=== PATIENT | male | born 1945 | race Caucasian/White ===

== ENCOUNTER 2017-06-11 13:38 | Emergency (ER) | payer MEDICARE, OTHER ==
[~2017-06-11] VITALS: Ht 162.6 cm; Wt 105.7 kg
[2017-06-11] MEDS ORDERED: ZOFRAN ODT4 MG PO (14:02)
[2017-06-11] MEDS ORDERED: HYCET 7.5 MG-3473 ML PO (14:06)
[2017-06-11] MEDS ORDERED: AMLODIPINE BESYL5 MG PO (14:07)
[2017-06-11] MEDS ORDERED: BAYER CHEWABLE81 MG PO (14:07)
[2017-06-11] MEDS ORDERED: PLAVIX75 MG PO (14:08)
[2017-06-11] MEDS ORDERED: BREO ELLIPTA 21 EACH INH (14:08)
[2017-06-11] MEDS ORDERED: PROSCAR5 MG PO (14:09)
[2017-06-11] MEDS ORDERED: PROAIR RESPICL90 MCG INH (14:10)
[2017-06-11] MEDS ORDERED: FLOMAX0.4 MG PO (14:11)
[2017-06-11] MEDS ORDERED: LASIX20 MG PO (14:12)
[2017-06-11] MEDS ORDERED: LANTUS100 UNITS/ SUB-Q (14:12)
[2017-06-11] MEDS ORDERED: LOSARTAN POTAS100 MG PO (14:30)
[2017-06-11] MEDS ORDERED: K-TAB ER20 MEQ PO (14:30)
[2017-06-11] MEDS ORDERED: MECLIZINE HCL25 MG PO (15:12)
== END 2017-06-11 15:34 | disposition home or self-care (01) ==
LOC: ED 13:38
DX: H81.10 Benign paroxysmal vertigo, unspecified ear (principal); I25.2 Old myocardial infarction; I10 Essential (primary) hypertension; E11.9 Type 2 diabetes mellitus without complications; Z95.5 Presence of coronary angioplasty implant and graft; Z88.1 Allergy status to other antibiotic agents; Z88.8 Allergy status to other drugs, medicaments and biological substances; Z79.899 Other long term (current) drug therapy; Z79.82 Long term (current) use of aspirin; Z79.4 Long term (current) use of insulin
CPT/HCPCS: 80053; 81001; 85025; 99283; J7030

== ENCOUNTER 2017-06-18 12:36 | Emergency (ER) | payer MEDICARE, OTHER ==
[~2017-06-18] VITALS: Ht 162.6 cm; Wt 105.7 kg
[~2017-06-18 12:36] MED LIST: AMLODIPINE BESYL5 MG PO; BAYER CHEWABLE81 MG PO; BREO ELLIPTA 21 EACH INH; FLOMAX0.4 MG PO; HYCET 7.5 MG-3473 ML PO; K-TAB ER20 MEQ PO; LANTUS100 UNITS/ SUB-Q; LASIX20 MG PO; LOSARTAN POTAS100 MG PO; MECLIZINE HCL25 MG PO; PLAVIX75 MG PO; PROAIR RESPICL90 MCG INH; PROSCAR5 MG PO; ZOFRAN ODT4 MG PO
[2017-06-18] MEDS ORDERED: METHYLPREDNISOLO4 M1 PO (16:14)
[2017-06-18] MEDS ORDERED: MECLIZINE HCL25 M1 PO (16:14)
[2017-06-18] MEDS ORDERED: MACRODANTIN100 MG PO (16:16)
--- NOTE | 2017-06-18 19:18 | EKG ---
[facility] [address] [facility] [place] [address] Signed Sinus bradycardia with 1st degree AV block Right bundle branch block Inferior infarct , age undetermined Abnormal ECG When compared with ECG of 29-MAY-2017 10:16, Vent. rate has decreased BY 30 BPM Confirmed by BRIGID BEE MD ([id number]) on 06/18/2017 7:17:59 PM Electronically Signed By: BRIGID BEE MD 06/18/17 1918 PATIENT NAME: DELGADO PELLETIER RAMA BUCIO Electrocardiogram DATE OF : 43 PHYSICIAN: BRIGID BEE MD REPORT #: [id number] REPORT IS CONFIDENTIAL AND NOT TO BE RELEASED WITHOUT AUTHORIZATION
== END 2017-06-18 16:25 | disposition home or self-care (01) ==
LOC: ED 12:36
DX: K43.2 Incisional hernia without obstruction or gangrene (principal); H83.09 Labyrinthitis, unspecified ear; N39.0 Urinary tract infection, site not specified; I25.2 Old myocardial infarction; I10 Essential (primary) hypertension; E11.9 Type 2 diabetes mellitus without complications; Z95.5 Presence of coronary angioplasty implant and graft; Z90.49 Acquired absence of other specified parts of digestive tract; Z88.8 Allergy status to other drugs, medicaments and biological substances; Z79.899 Other long term (current) drug therapy; Z79.4 Long term (current) use of insulin
CPT/HCPCS: 70450; 74177; 80053; 81001; 84484; 85025; 93005; 93010; 96361; 96374; 99284; J2405; J7030; Q9967

== ENCOUNTER 2020-09-27 06:00 | Day surgery (SDC) | payer MEDICARE, OTHER ==
[~2020-09-27] VITALS: Ht 162.6 cm; Wt 102.3 kg
[~2020-09-27 06:00] MED LIST changes: +COZAAR25 MG PO; +HUMALOG100 UNIT/2 SUB-Q; -LOSARTAN POTAS100 MG PO; +MACRODANTIN100 MG PO; +MECLIZINE HCL25 M1 PO; +METHYLPREDNISOLO4 M1 PO; +PEPCID40 MG PO
--- NOTE | 2020-09-27 09:42 | NUR ---
09/27/20 0942 Jerri Wasserman 0900 PT ARRIVED IN PACU SLEEPY WITH OPA IN PLACE. 09 PT REACTIVE. OPA REMOVED. ABD SOFT AND PASSING FLATUS. 0910 REPOSITIONED TO BACK AND SITTING UP IN BED. 0915 DR AT BEDSIDE. 09 GETTING DRESSED WITH STAND BY ASSIST. DC INSTRUCTIONS GIVEN. 0930 LEFT VIA W/C. INSTRUCTIONS GIVEN TO AT CAR. ALL QUESTIONS ANSWERED.
--- NOTE | 2020-09-28 06:33 | OR ---
[facility] [address] [place], [place] [address] Signed DATE OF OPERATION: 09/27/2020 SURGEON: Tamara Anderson MD PREOPERATIVE DIAGNOSES: 1. Mild epigastric abdominal pain. 2. Gastric sleeve in 2017. 3. Gastroesophageal reflux disease. 4. Chews snuff. 5. Increased diarrhea. 6. Sigmoid resection at age 44 for diverticular disease. 7. Choi colorectal anastomosis. 8. Diverticulosis. 9. Internal and external hemorrhoids. POSTOPERATIVE DIAGNOSES: 1. Mild gastritis. 2. Small hiatal hernia (42-39 cm). 3. Choi colorectal anastomosis at 22-24 cm. 4. Minimal to moderate diverticulosis from proximal transverse colon through left colon. 5. Minimal to moderate internal and external hemorrhoids. 6. 10 mm polyp at 26 cm (snare). 7. 5 mm polyp at 42 cm. 8. 4 mm polyp at 52 cm. 9. 4 mm polyp at hepatic flexure. 10. 4 mm polyp at proximal transverse colon. 11. 4 mm polyp at 50 cm. PROCEDURES: 1. EGD with CLOtest and biopsies of the duodenum, antrum, GE junction, midesophagus. 2. Colonoscopy with snare polypectomy and hot biopsy. ESTIMATED BLOOD LOSS: None. INDICATIONS: Delgado is a 75-year-old significantly disabled, obese, diabetic gentleman. He was asked to see me for upper and lower endoscopy. He presents with the above findings. He had his last colonoscopy in [address] Toi Willams in [place], [place]. He did have some diverticular disease at that time along with internal and external hemorrhoids. He Electronically Signed By: TAMARA ANDERSON MD 09/28/20 0633 PATIENT NAME: DELGADO PELLETIER JR OPERATIVE REPORT DATE OF : 43 REPORT #: [id number] PHYSICIAN: TAMARA ANDERSON MD PCP: RUBÉN GUNDERSON MD REPORT IS CONFIDENTIAL AND NOT TO BE RELEASED WITHOUT AUTHORIZATION [facility] [address] [place], [place] [address] Signed has no family history of colon cancer or polyps. He has been having some increased diarrhea, but generally works out well with his Metamucil. That represents a change in bowel habits for him. He has no prior history of colon polyps or cancer and no family history of colon cancer or polyps. In the office, I gave him upper and lower endoscopy brochures. He understands the nature of the two tests. There is risk including, but not limited to gas bloating, crampy abdominal pain, bleeding, perforation requiring surgery, and missed diagnosis. Also because of his significant medical history including his heart and the fact that he remains obese with a very full face and neck, we asked that an anesthesia provider help us with increased monitoring sedation with propofol, that proved to be a khan decision as he did need some airway control. He had expressed understanding and wished to proceed. DESCRIPTION OF PROCEDURE: Delgado was taken into our endoscopy suite and placed in a supine semi-recumbent position. A bite block was utilized for the upper endoscopy. He was given IV sedation per nurse sales representative wire rope. The adult gastroscope was introduced and advanced under direct visualization out into the third portion of the duodenum without difficulty. We took a biopsy of the duodenum because of the history of diarrhea. The pyloric bulb was unremarkable. The stomach showed routine gastric sleeve anatomy. We went and took biopsy out of the antrum for pathologic review along with the CLOtest. He had just a little erythema in the antrum. Upon retroflexion of scope, we could see the cardia. He does have a small hiatal hernia. The scope was withdrawn up through the area of the GE junction, which was compliant without stricture. We saw no gastric or esophageal varices. The Z-line is relatively intact, but he did have little irritation around that area, so we took a biopsy along the edge of the Z-line. No Del Angel's mucosa and no distal esophagitis. He had some rings in the mid esophagus, so we took biopsies of the midesophagus as well. Otherwise, no inflammatory changes in the mid or upper esophagus. After this, the gas had been suctioned out and the gastroscope removed. Delgado tolerated his upper endoscopy quite well. Delgado was rotated into the left lateral decubitus position. He was maintained on IV sedation with propofol per our nurse sales representative wire rope. A digital rectal exam was performed. He does have minimal external hemorrhoids. He had good sphincter tone. Prostate is [id number] indurated and enlarged. No nodules. The adult colonoscope was introduced and we passed all the way up into the cecum without difficulty. His prep was good. We could easily see the appendiceal orifice and the ileocecal valve. The scope was then slowly withdrawn. We took pictures throughout for photodocumentation. The above-mentioned polyps were removed with the help of hot biopsy forceps. Just above his colorectal anastomosis was a moderate-sized polyp, which we removed with a combination of the snare and hot biopsy forceps. We think we removed all of it. Although, it is a bit difficult because it was just above the anastomosis and with him breathing there was quite a bit of motion. We eventually added glucagon and that did help. We can see the Electronically Signed By: TAMARA ANDERSON MD 09/28/20 0633 PATIENT NAME: DELGADO PELLETIER JR OPERATIVE REPORT DATE OF : 43 REPORT #: [id number] PHYSICIAN: TAMARA ANDERSON MD PCP: RUBÉN GUNDERSON MD REPORT IS CONFIDENTIAL AND NOT TO BE RELEASED WITHOUT AUTHORIZATION [facility] [address] [place] [id number] Signed anastomosis well healed 22-24 cm. The rectum itself was unremarkable. Upon retroflexion of scope, he does have moderate internal hemorrhoids. After this, the gas was suctioned out and colonoscope removed. Delgado tolerated the procedure quite well. RECOMMENDATIONS: I will see Delgado back in my office in 7 to 14 days to review his results. He could consider a shorter interval followup colonoscopy, particularly to evaluate the area just above the anastomosis. MD DILLON Mackey/JESUSL /[id number] cc: MD Rubén Mackey MD Copies: TAMARA ANDERSON MD, MALCOLM MD ~ Electronically Signed By: TAMARA ANDERSON MD 09/28/20 0633 PATIENT NAME: DELGADO PELLETIER JR OPERATIVE REPORT DATE OF : 43 REPORT #: [id number] PHYSICIAN: TAMARA ANDERSON MD PCP: RUBÉN GUNDERSON MD REPORT IS CONFIDENTIAL AND NOT TO BE RELEASED WITHOUT AUTHORIZATION
--- NOTE | 2020-10-02 08:00 | PATH ---
[facility] [address] [place], [place] [address] Signed SPECIMEN(S): A DUODENAL BIOPSY SPECIMEN(S): B ANTRUM/PYLORUS BIOPSY SPECIMEN(S): C GE JUNCTION SPECIMEN(S): D MIDDLE ESOPHAGEAL BIOPSY SPECIMEN(S): E COLON POLYP AT 42 CM SPECIMEN(S): F COLON POLYP AT 52 CM SPECIMEN(S): G HEPATIC FLEXURE COLON POLYP SPECIMEN(S): H PROXIMAL TRANSVERSE COLON POLYP SPECIMEN(S): I COLON POLYP AT 50 CM SPECIMEN(S): J COLON POLYP AT 26 CM SPECIMEN SOURCE: A. DUODENAL BIOPSY B. ANTRUM/PYLORUS BIOPSY C. GE JUNCTION D. MIDDLE ESOPHAGEAL BIOPSY E. COLON POLYP AT 42 CM F. COLON POLYP AT 52 CM G. HEPATIC FLEXURE COLON POLYP H. PROXIMAL TRANSVERSE COLON POLYP I. COLON POLYP AT 50 CM J. COLON POLYP AT 26 CM CLINICAL HISTORY: Esophagogastroduodenoscopy and colonoscopy. Reflux, diarrhea. Post: Mild gastritis, small hiatal hernia, diverticulosis, colon polyps, internal/external hemorrhoids. MICROSCOPIC DESCRIPTION: Histologic sections of all submitted blocks are examined by light microscopy. These findings, together with the gross examination, support the pathologic diagnosis. FINAL PATHOLOGIC DIAGNOSIS: A. Duodenum, biopsy: - Duodenal mucosa with no histopathologic abnormality. - Negative for increased intraepithelial lymphocytes. - Negative for dysplasia or malignancy. B. Stomach, antrum/pylorus, biopsy: - Antral mucosa with no histopathologic abnormality. - Negative for Helicobacter organisms on HE stain. - Negative for dysplasia or malignancy. PATIENT NAME: DELGADO PELLETIER JR PATHOLOGY DATE OF : 43 REPORT #: [id number] PHYSICIAN: MARTIN REA PCP: JOSE GUNDERSON MD REPORT IS CONFIDENTIAL AND NOT TO BE RELEASED WITHOUT AUTHORIZATION [facility] [address] [place], [place] [address] Signed C. Gastroesophageal junction, biopsy: - Squamocolumnar junctional mucosa with acute inflammation and reactive epithelial changes, consistent with reflux esophagitis. - Negative for intestinal metaplasia, dysplasia, or malignancy. D. Esophagus, middle, biopsy: - Squamous mucosa with no histopathologic abnormality. - Negative for increased intraepithelial eosinophils. - Negative for dysplasia or malignancy. E. Colon, polyp at 42 cm, polypectomy: - Fragments of tubular adenoma. - Negative for high-grade dysplasia or malignancy. F. Colon, polyp at 52 cm, polypectomy: - Tubular adenoma. - Negative for high-grade dysplasia or malignancy. G. Colon, hepatic flexure, polyp, polypectomy: - Tubular adenoma. - Negative for high-grade dysplasia or malignancy. H. Colon, proximal transverse, polyp, polypectomy: - Colonic mucosa with mucosal capillary congestion. - Negative for dysplasia or malignancy. I. Colon, polyp at 50 cm, polypectomy: - Cauterized colonic mucosa with no identifiable histopathologic abnormality. - Negative for dysplasia or malignancy. J. Colon, polyp at 26 cm, polypectomy: - Fragments of tubular adenoma. - Negative for high-grade dysplasia or malignancy. NAL:cml:C2NR GROSS DESCRIPTION: Ten specimens are received in ten containers, labeled "CL." A. The specimen, labeled "CL, duodenum biopsy," is received in formalin and consists of one canela soft tissue fragment that measures 0.2 cm in greatest dimension. The specimen is entirely submitted in cassette (A1). B. The specimen, labeled "CL, antrum biopsy," is received in formalin and consists of one canela soft tissue fragment that measures 0.2 cm in greatest dimension. The specimen is entirely submitted in cassette (B1). C. The specimen, labeled "CL, GE junction biopsy," is received in formalin and consists of one canela soft tissue fragment that measures 0.1 cm in greatest dimension. The specimen is entirely submitted PATIENT NAME: DELGADO PELLETIER JR PATHOLOGY DATE OF : 43 REPORT #: [id number] PHYSICIAN: MARTIN PATHOLOGY PCP: JOSE GUNDERSON MD REPORT IS CONFIDENTIAL AND NOT TO BE RELEASED WITHOUT AUTHORIZATION [facility] [address] [place], [place] [address] Signed in cassette (C1). D. The specimen, labeled "CL, middle esophagus biopsy," is received in formalin and consists of one canela soft tissue fragment that measures 0.2 cm in greatest dimension. The specimen is entirely submitted in cassette (D1). E. The specimen, labeled "CL, colon polyp at 42 cm," is received in formalin and consists of four canela soft tissue fragments that measure 0.1-0.2 cm in greatest dimension. The specimen is entirely submitted in cassette (E1). F. The specimen, labeled "CL, colon polyp at 52 cm," is received in formalin and consists of one canela soft tissue fragment that measures 0.2 cm in greatest dimension. The specimen is entirely submitted in cassette (F1). G. The specimen, labeled "CL, hepatic flexure polyp," is received in formalin and consists of two canela soft tissue fragments that measure 0.1 cm in greatest dimension. The specimen is entirely submitted in cassette (G1). H. The specimen, labeled "CL proximal transverse colon polyp," is received in formalin and consists of one canela soft tissue fragment that measures 0.1 cm in greatest dimension. The specimen is entirely submitted in cassette (H1). I. The specimen, labeled "CL, colon polyp at 50 cm," is received in formalin and consists of two canela soft tissue fragments that measure 0.1 cm in greatest dimension. The specimen is entirely submitted in cassette (I1). J. The specimen, labeled "CL, colon polyp at 26 cm," is received in formalin and consists of seven canela soft tissue fragments that measure 0.1-0.6 cm in greatest dimension. The specimen is entirely submitted in cassette (J1). JS (under the direct supervision of a pathologist) The Gross Description was prepared using a voice recognition system. The report was reviewed for accuracy; however, sound-alike word errors, addition and/or deletions may occur. If there is any question about this report, please contact Client Services. PERFORMING LABORATORY: The technical component was performed [place] [address] (Marketing Project Specialist: Karina Frias MD; CLIA# [id number]). [facility], [address] [place] [address] (CLIA# PATIENT NAME: DELGADO PELLETIER JR PATHOLOGY DATE OF : 43 REPORT #: [id number] PHYSICIAN: MARTIN REA PCP: JOSE GUNDERSON MD REPORT IS CONFIDENTIAL AND NOT TO BE RELEASED WITHOUT AUTHORIZATION [facility] [address] [place] [address] [place], [place] [address] Signed [id number]). Diagnostician: Afsaneh Melton MD Pathologist Electronically Signed 10/02/2020 Copies: ~ PATIENT NAME: PRABHU JRDELGADO RAMA PATHOLOGY DATE OF : 43 REPORT #: [id number] PHYSICIAN: MARTIN PATHOLOGY PCP: JOSE GUNDERSON MD REPORT IS CONFIDENTIAL AND NOT TO BE RELEASED WITHOUT AUTHORIZATION
== END 2020-09-27 09:30 | disposition home or self-care (01) ==
LOC: DS 06:00 → OPS 06:00 → DS 09-29 06:45
PROVIDERS: ATTEND Colon & Rectal Surgery
PROC: 0DB28ZX Excision of Middle Esophagus, Via Natural or Artificial Opening Endoscopic, Diagnostic (ICD-10-PCS; 2020-09-27)
PROC: 0DB48ZX Excision of Esophagogastric Junction, Via Natural or Artificial Opening Endoscopic, Diagnostic (ICD-10-PCS; 2020-09-27)
PROC: 0DBE8ZX Excision of Large Intestine, Via Natural or Artificial Opening Endoscopic, Diagnostic (ICD-10-PCS; 2020-09-27)
PROC: 0DBL8ZX Excision of Transverse Colon, Via Natural or Artificial Opening Endoscopic, Diagnostic (ICD-10-PCS; 2020-09-27)
PROC: 0DBE8ZX Excision of Large Intestine, Via Natural or Artificial Opening Endoscopic, Diagnostic (ICD-10-PCS; 2020-09-27)
PROC: 0DB98ZX Excision of Duodenum, Via Natural or Artificial Opening Endoscopic, Diagnostic (ICD-10-PCS; principal; 2020-09-27 06:45)
PROC: 0DB78ZX Excision of Stomach, Pylorus, Via Natural or Artificial Opening Endoscopic, Diagnostic (ICD-10-PCS; 2020-09-27 06:45)
DX: D12.3 Benign neoplasm of transverse colon (principal); D12.6 Benign neoplasm of colon, unspecified; K29.70 Gastritis, unspecified, without bleeding; K44.9 Diaphragmatic hernia without obstruction or gangrene; K63.89 Other specified diseases of intestine; K57.30 Diverticulosis of large intestine without perforation or abscess without bleeding; K64.8 Other hemorrhoids; K64.4 Residual hemorrhoidal skin tags; E10.9 Type 1 diabetes mellitus without complications; K21.9 Gastro-esophageal reflux disease without esophagitis; I10 Essential (primary) hypertension; E78.5 Hyperlipidemia, unspecified; F17.220 Nicotine dependence, chewing tobacco, uncomplicated; E66.01 Morbid (severe) obesity due to excess calories; J98.4 Other disorders of lung; Z99.81 Dependence on supplemental oxygen; Z86.73 Personal history of transient ischemic attack (TIA), and cerebral infarction without residual deficits; Z95.5 Presence of coronary angioplasty implant and graft; Z88.8 Allergy status to other drugs, medicaments and biological substances; Z96.653 Presence of artificial knee joint, bilateral; Z79.02 Long term (current) use of antithrombotics/antiplatelets; Z79.82 Long term (current) use of aspirin; Z68.41 Body mass index [BMI] 40.0-44.9, adult; Z98.84 Bariatric surgery status
CPT/HCPCS: 86677; 88305; J0690; J1610; J2001; J2704; J7121

== ENCOUNTER 2020-10-03 05:30 | Inpatient (IN) | payer MEDICARE, OTHER ==
[~2020-10-03] VITALS: Ht 162.6 cm; Wt 103.5 kg
--- OUTSIDE RECORDS SUMMARY | 2020-10-03 05:38 | XMS ---
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 Cliff has no Care Guidelines for this patient. Sloan VISIT COUNT (12 MO.) 1 ARCHIE Colin TOTAL 1 NOTE: Visits indicate total known visits. ED/UCC VISIT TRACKING (12 MO.) 10/03/2020 05:33 ARCHIE Pinto [place] TYPE: Emergency COMPLAINT: - MULTIPLE COMPLAINTS INPATIENT VISIT TRACKING (12 MO.) No inpatient visits to display in this time frame [id number]
[2020-10-03] MEDS ORDERED: FAMOTIDINE40 MG PO (05:54)
[2020-10-03] MEDS ORDERED: FENOFIBRATE145 MG PO ×2 (05:55)
[2020-10-03] MEDS ORDERED: VITAMIN B-121000 MCG PO ×2 (05:59)
[2020-10-03] MEDS ORDERED: VITAMIN D325 MC2 PO ×2 (06:00)
--- NOTE | 2020-10-03 08:30 | NUR ---
PATIENT ARRIVES TO CCU VIA STRETCHER FROM ER FOR A GI BLEED. PT WAS GIVEN 2 UNITS OF UNCROSSMATCHED BLOOD IN ER. PT WAS COVERED IN BLOOD FROM MID ABDOMEN, ACROSS BACK AND DOWN HIS LEGS. PATIENT WAS CONSCIENTIOUS OF THE BLOOD ON HIM. PATIENT'S SAMI ARRIVES WITH HIM. PT REPORTS THAT HE IS STILL FEELING A LITTLE "WHOOZY" BUT IS DOING OKAY OVERALL. PT REPORTS THAT HE HAS HAD 2 "PASSING OUT" EPISODES. PATIENT WILL HAVE A BOWEL PREP TODAY WITH AN UPPER AND LOWER SCOPE TO BE DONE. PT STARTING TO DRINK THE BOWEL PREP. IVF STARTED AT 100 ML/HR. HR REMAINS IN THE LOW 50s, EVEN DIPPING DOWN TO 49 AT TIMES WITH SOME PVCs NOTED.
--- NOTE | 2020-10-03 10:05 | NUR ---
DR. GONSALES IN ROOM TO SEE PATIENT. PT HAS FINISHED THE FIRST BOTTLE OF BOWEL PREP.
--- NOTE | 2020-10-03 10:36 | NUR ---
PATIENT UP TO BSC X2 FOR LIQUID BURGUNDY BMs. PT STILL YET TO VOID. PT BACK TO BED. PT TOLERATING BOWEL PREP WELL.
--- NOTE | 2020-10-03 10:50 | NUR ---
DR. ANDERSON IN ROOM TO SEE PATIENT. PATIENT UP TO BSC AGAIN WIHT ANOTHER LIQUID DARK BROWN STOOL. PT UNSURE IF HE IS ACTUALLY VOIDING OR NOT. PVCs AND SOME SINUS ARRHYTHMIAS NOTED ON EKG. MAGNESIUM TO BE ORDERED WITH 1100 LABS.
--- NOTE | 2020-10-03 10:56 | CONS ---
[facility] [address] [place], [place] [address] Signed DATE OF CONSULTATION: 10/03/2020 REFERRING PHYSICIAN: Chrissie San MD CHIEF COMPLAINT: Rectal bleeding. HISTORY OF PRESENT ILLNESS: Yovani is a 75-year-old significantly disabled gentleman who underwent upper and lower endoscopy on 09/27/2020 with myself. We took biopsies out of his gastric sleeve in the duodenum, antrum, GE junction and midesophagus. He also had hot biopsies done at hepatic flexure, proximal transverse colon, 52 cm, 50 cm and 42 cm. He also had a snare polypectomy at 26 cm just above his colorectal anastomosis. He has had a previous sigmoid resection for diverticular disease. He does use aspirin and Plavix, but he held that when he went home. Although, he started bleeding yesterday and finally passed out a couple of times. He had some blood per rectum and his had called the ambulance. He has come into the hospital here in the ER and he has responded nicely to some IV fluids and some couple of units of blood. Of course, I have was asked to see him in consultation. In the meantime, he has remained hemodynamically stable. PAST MEDICAL HISTORY: Diabetes, diarrhea, internal hemorrhoids, external hemorrhoids, coronary artery disease, obesity, stroke, diverticulitis and hard of hearing. PAST SURGICAL HISTORY: Includes a gastric sleeve in 2017, the sigmoid resection for diverticular disease, appendectomy, cholecystectomy, ventral hernia repair with mesh, colonoscopy in 2008, EGD in 2016, cardiac stents, left rotator cuff and bilateral knee replacements. He had upper and lower endoscopy on 09/27/2020. SOCIAL HISTORY: He quit smoking and drinking. He does chew snuff. He is and lives here in [place]. Dr. Rubén Mello is his primary care provider, Dr. Jose Sheppard is his therapeutic recreation assistant. They prefer the [facility]. FAMILY HISTORY: Father had heart disease. Mother had a stroke and dementia. There has been no colon cancer or polyps in the family. REVIEW OF SYSTEMS: He had 10 systems reviewed and nothing new since I just saw him a week ago. Electronically Signed By: TAMARA ANDERSON MD 10/03/20 1056 PATIENT NAME: YOVANI PELLETIER JR CONSULTATION DATE OF : 43 REPORT #: [id number] PHYSICIAN: TAMARA ANDERSON MD PCP: RUBÉN MELLO MD REPORT IS CONFIDENTIAL AND NOT TO BE RELEASED WITHOUT AUTHORIZATION [facility] [address] [place], [place] [address] Signed ALLERGIES: Questran, Lipitor, Lexapro, Lunesta, Vasotec and metformin. MEDICATIONS: Metamucil, Pepto-Bismol, Proscar, Lasix, Plavix, Tylenol, Lantus, aspirin, Humalog, vitamin B12, vitamin D, Finasteride, losartan, fenofibrate, Flomax, and Pepcid. PHYSICAL EXAMINATION: VITAL SIGNS: Blood pressure is 108/56, heart rate 67, respiratory rate 21, temperature 97.4, he is 100% on room air. He is 5 feet and 4 inches, 105 kg. GENERAL: Yovani is a 75-year-old gentleman, lying supine in his ER bed. His is at the bedside. They are both hard of hearing. He has some blood around his abdomen between his legs. He has no increased work of breathing or shortness of breath. He is able to talk in full sentences. ABDOMEN: Obese, moderately protuberant, but soft. RECTAL: Exam is not performed today. LABORATORY DATA: His white blood cell count 11.11, hemoglobin 11.8, neutrophils 61. BUN 27, creatinine 1.1, glucose 253, INR 1.0. Liver function tests are negative. Albumin 3.4. RADIOGRAPHIC STUDIES: None. ASSESSMENT/PLAN: Yovani is a 75-year-old gentleman with a lower GI bleed following his colonoscopy 6 days ago. It may very well be from the snare polypectomy site at 26 cm. However, any of the biopsy sites can bleed. We are going to admit him and resuscitate him and get him through a bowel prep and see if we can do a colonoscopy for him later today or tomorrow. I have reviewed this with Yovani and his . They have expressed understanding and agreed with the above plan. In the meantime, we will consult our Internal Medicine Service as well. Tamara Anderson MD ALB/MODL /[id number] Electronically Signed By: TAMARA ANDERSON MD 10/03/20 1056 PATIENT NAME: YOVANI PELLETIER JR CONSULTATION DATE OF : 43 REPORT #: [id number] PHYSICIAN: TAMARA ANDERSON MD PCP: RUBÉN MELLO MD REPORT IS CONFIDENTIAL AND NOT TO BE RELEASED WITHOUT AUTHORIZATION [facility] [address] [place], [place] [address] Signed cc: MD Tamara Rodriguez MD Copies: RUBÉN MELLO MD, ANDREW L MD ~ Electronically Signed By: TAMARA ANDERSON MD 10/03/20 1056 PATIENT NAME: YOVANI PELLETIER CONSULTATION DATE OF : 43 REPORT #: [id number] PHYSICIAN: TAMARA ANDERSON MD PCP: RUBÉN MELLO MD REPORT IS CONFIDENTIAL AND NOT TO BE RELEASED WITHOUT AUTHORIZATION
--- NOTE | 2020-10-03 11:21 | NUR ---
LAB IN ROOM WITH PATIENT DRAWING 1100 CBC AND MAG LEVEL. CONTINUE TO MONITOR.
--- NOTE | 2020-10-03 12:53 | NUR ---
PATIENT CONTINUES TO BE UP TO BSC, USES CALL LIGHT, AND IS VOIDING AND HAVING DARK BROWN LIQUID BMs. PT DENIES WANTING ANY CLEAR LIQUIDS OTHER THAN THE MIRALAX AND WATER. PT'S GIVEN CAREGIVER TRAY.
--- NOTE | 2020-10-03 14:11 | NUR ---
PATIENT RESTING/SLEEPING IN BED AT THIS TIME. PT'S LEFT FOR THE AFTERNOON BUT STATES SHE WILL RETURN LATER THIS EVENING. WILL CONTINUE TO MONITOR.
--- NOTE | 2020-10-03 14:54 | NUR ---
PT LAYING IN BED SN IN DOING VS. IS AT BS, SEEMED PLEASED I STOPPED BY GAVE ENCOURAGEMENT, BOTH FEEL THEY ARE INFORMED AND ALREADY PT FEELS BETTER. GAVE BLESSING AND G.POST. WILL FOLLOW NEEDED
[2020-10-03] MEDS ORDERED: FLOMAX0.4 MG PO ×2 (15:11)
--- NOTE | 2020-10-03 16:00 | NUR ---
RT IN ROOM TO SEE PATIENT. ASSESSMENT AND VITALS COMPLETE. PATIENT HAS FINISHED BOWEL PREP AND STOOLS REMAINS LIQUID, DARK BROWNISH IN COLOR. PT MOSTLY VOIDING INTO COMMODE WELL THEREFORE URINE AND STOOL ARE MIXED. PT'S REMAINS GONE AT THIS TIME BUT WILL RETURN THIS EVENING. PT RESTING IN BED AND DENIES PAIN. HR REMAINS ON THE 50s SINUS TENA WHEN RESTING, BUT DOES INCREASE TO 80-90s WITH ACTIVITY. PVCs STILL NOTED AT TIMES. IVF CONTINUE TO INFUSE AT 100 ML/HR.
--- NOTE | 2020-10-03 17:07 | NUR ---
Unable to see pt today. Update from RN, pt will have a scope to follow tomorrow. Will see tomorrow am.
[2020-10-03] MEDS ORDERED: PEPTO-BISM262 MG/15 PO ×2 (17:23)
[2020-10-03] MEDS ORDERED: VITAMIN C500 M1 PO ×2 (17:24)
[2020-10-03] MEDS ORDERED: METAMUCIL660 GM PO ×2 (17:24)
[2020-10-03] MEDS ORDERED: ADULT ASPIRIN R81 MG PO ×2 (17:25)
[2020-10-03] MEDS ORDERED: TYLENOL325 MG PO ×2 (17:27)
--- NOTE | 2020-10-03 17:27 | NUR ---
MED REC COMPLETE
--- NOTE | 2020-10-03 17:52 | NUR ---
PATIENT UP TO [facility] [place]. PATIENT VOIDED A VERY SMALL AMOUT. IS BACK IN ROOM. PATIENT RETURNED TO BED AFTER VOIDING, HAS NO COMPLAINTS AT THIS TIME.
--- NOTE | 2020-10-03 18:50 | NUR ---
PATIENT UP TO BSC TO HAVE A BM, PT ASSISTED TO BED WITH NO COMPLAINTS.
--- NOTE | 2020-10-03 20:30 | NUR ---
SHIFT REPORT RECEIVED FROM CHING EID. ASSESSMENT COMPLETED. PT IS ALERT/ORIENTED, DENIES PAIN. LUNGS CLEAR, RA. HR REGULAR, RATE 49-50'S. BOWEL TONES ACTIVE, DENIES NAUSEA OR TENDERNESS. SKIN GROSSLY INTACT. IV SITES INTACT AND PATENT. CB, NO SLIDING SCALE COVERAGE REQUIRED. PT DENIES FURTHER REQUESTS AT THIS TIME, CALL LIGHT WITHIN REACH AND AT BEDSIDE.
--- NOTE | 2020-10-03 21:12 | EKG ---
[facility] [address] [facility] [place] [address] Signed Sinus rhythm with marked sinus arrhythmia with occasional premature ventricular complexes Right bundle branch block Abnormal ECG When compared with ECG of 25-SEP-2020 10:59, premature ventricular complexes are now present QRS axis shifted right Nonspecific T wave abnormality has replaced inverted T waves in Inferior leads T wave inversion no longer evident in Anterior leads Confirmed by DEE GONSALES DO ([id number]) on 10/03/2020 9:11:53 PM Electronically Signed By: DEE GONSALES DO 10/03/202111 PATIENT NAME: DELGADO PELLETIER JR Electrocardiogram DATE OF : 43 PHYSICIAN: DEE GONSALES DO REPORT #: [id number] REPORT IS CONFIDENTIAL AND NOT TO BE RELEASED WITHOUT AUTHORIZATION
--- NOTE | 2020-10-03 21:57 | NUR ---
CHECKED IN ON PT WHO IS SLEEPING AT THIS TIME. NO APPARENT DISTRESS. RESPIRATIONS EVEN AND UNLABORED. CALL LIGHT WITHIN REACH AND SLEEPING IN RECLINER CHAIR.
--- NOTE | 2020-10-04 00:04 | NUR ---
PT WAS SLEEPING, WOKE WHEN I ENTERED ROOM. ASSESSMENT COMPLETED AND UNCHANGED. DISCUSSED NPO STATUS WITH PT WHO VERBALIZES UNDERSTANDING. IV SITES REMAIN INTACT AND FLUIDS INFUSING WNL. PT DENIES REQUESTS AT THIS TIME, CALL LIGHT WITHIN REACH.
--- NOTE | 2020-10-04 02:05 | NUR ---
CHECKED IN ON PT WHO IS CURRENTLY ASLEEP. NO APPARENT DISTRESS. RESPIRATIONS EVEN AND UNLABORD. VITAL SIGNS STABLE.
--- NOTE | 2020-10-04 04:19 | NUR ---
PT CONTINUES TO SLEEP SOUNDLY, NO APPARENT DISTRESS. RESPIRATIONS EVEN AND UNLABORED. WILL DEFER ASSESSMENT TO ALLOW FOR SLEEP.
--- NOTE | 2020-10-04 05:00 | NUR ---
ASSESSMENT COMPLETED AND UNCHANGED. PT UP TO BSC WITH 1-PA, VOIDED 500ML AND RETURNED TO BED. IV SITES REMAIN INTACT AND FLUIDS INFUSING WNL. PT DENIES FURTHER REQUESTS, CALL LIGHT WITHIN REACH.
--- NOTE | 2020-10-04 07:01 | NUR ---
PT OFF FLOOR AT THIS TIME WITH OMichael NURSE.
--- NOTE | 2020-10-04 07:45 | NUR ---
10/04/20 0745 Brii Hampton 7185-PATIENT ARRIVED TO PACU ON 2L NC RR EVEN REACTIVE TO VERBAL STIMULI OPENING EYES. DENIES PAIN OR NAUSEA. SR. ABDOMEN SOFT. PASSING GAS. IVF INFUSING.
--- NOTE | 2020-10-04 08:01 | NUR ---
DR. ANDERSON IN ROOM TALKING WITH PATIENT'S AT THIS TIME. PATIENT WILL BE RETURNING FROM PROCEDURE HERE VERY SOON. LUCIA FROM CASE MANAGEMENT IN ROOM WITH HER AT THIS TIME. PLAN IS FOR PATIENT TO POTENTIALLY DISCHARGE HOME TODAY IF HE DOES WELL AFTER SCOPE.
--- NOTE | 2020-10-04 08:14 | NUR ---
Spoke with Davion, pt's . Pt is having a scope. She states they live in [place] in a 1 story home with 3 steps and hand rails. Family stand by when pt walks on steps and assist if needed. Pt uses a cane for longer distance, has a walker, but does not use. Pt has problems standing for longer periods, but is becoming stronger. They are both retired. She denies financial issues and has good family support. Dr Hernandez visited and explained findings. Pt will dc to home today if feeling well.
--- NOTE | 2020-10-04 08:21 | NUR ---
PATIENT BACK FROM PACU AND INTO CCU BED. PT ASKING QUESTIONS ABOUT HIS PROCEDURE. BED LINEN CHANGED. SOFT DIET ORDERED AND WILL ORDER PATIENT'S BREAKFAST.
--- NOTE | 2020-10-04 12:07 | NUR ---
IN TO CHECK PATIENT'S BG. PT IS RESTING COMFORTABLY IN BED. NO COMPLAINTS AT THIS TIME. ASSESSMENT AND VITALS COMPLETED AT THIS TIME, NO CHANGES.
--- NOTE | 2020-10-04 12:44 | OR ---
[facility] [address], [place] [address] Signed DATE OF OPERATION: 10/04/2020 SURGEON: Tamara Anderson MD PREOPERATIVE DIAGNOSIS: 1. Lower gastrointestinal bleed following polypectomy (postoperative day #7). 2. Anemia (hemoglobin 11.6). POSTOPERATIVE DIAGNOSES: 1. 4 mm cecal polyp x1. 2. 4 mm polyp distal right colon x1. 3. Healing polypectomy sites at hepatic flexure, proximal transverse colon, 52 cm, 50 cm and 42 cm. 4. Mild red blood at 26 cm polypectomy site (clipped x2). PROCEDURE: Colonoscopy with application of clip x2. ESTIMATED BLOOD LOSS: None. INDICATIONS: Delgado is a 75-year-old gentleman who is significantly disabled. He requires Plavix and aspirin. He came to us last week for a followup colonoscopy. He did have polyps removed at the hepatic flexure, proximal transverse colon, 52 cm, 50 cm, 42 cm and 26 cm. He has had a previous sigmoid colectomy and therefore, has a Choi end-to-side colorectal anastomosis at around 26 cm. He had been home and doing fine and then the day prior to admission started to have some blood per rectum. He did not tell his and the next day, she found him in the bathroom, passed out on the floor with maroon-colored blood on the floor. Of course, he came to the emergency room and he was hypotensive and received 2 units of blood immediately. His hemoglobin has been right around 11.6 and has been stable. He has also been hemodynamically stable. We put him through his bowel prep yesterday and he has cleaned out very nicely. There has been no evidence of any ongoing bleeding with respect to the bowel prep. He comes down this morning then to have a colonoscopy repeated. We also did an upper endoscopy for him last week and he does have some biopsy sites as well. He has had a previous gastric sleeve. However, I have never had biopsy sites bleed in the stomach. We felt this was going to be a lower GI bleed. Of course, Delgado and his understand endoscopy quite well. They understand there is risk including, but not limited to gas bloating, crampy abdominal pain, bleeding, perforation requiring surgery, and missed diagnosis. Electronically Signed By: TAMARA ANDERSON MD 10/04/20 1244 PATIENT NAME: DELGADO PELLETIER JR OPERATIVE REPORT DATE OF : 43 REPORT #: [id number] PHYSICIAN: TAMARA ANDERSON MD PCP: JOSE GUNDERSON MD REPORT IS CONFIDENTIAL AND NOT TO BE RELEASED WITHOUT AUTHORIZATION [facility] [address], [place] [address] Signed They had expressed understanding and wished to proceed. Given his advanced age, obesity, and advanced medical issues, of course we had an anesthesia provider to help us with monitored anesthesia care. Delgado and his had expressed understanding and wished to proceed. PROCEDURE NOTE: Delgado was taken into our endoscopy suite and placed in the left lateral decubitus position. He was given IV sedation per our nurse shoes salesperson. A digital rectal exam was performed and this was unremarkable. Specifically, no blood on the index finger. The adult colonoscope had been introduced and advanced all around into the cecum under direct visualization of camera without difficulty. On the way in, we went very slowly and we found each of the polypectomy sites. There was a very tiny amount of red blood on two sites at the 26 cm area. All the other sites of bleeding are healing quite nicely. His prep was quite excellent. We could easily see the appendiceal orifice and ileocecal valve. We found two additional polyps and removed them with hot biopsy forceps. One in the cecum, one in the distal right colon. We then made our way slowly back to the polypectomy site at 26 cm. Again, he has diverticulosis. We placed a clip on each of the two spots and we felt that we were quite happy in that regard. The rectum itself was unremarkable. Upon retroflexion of scope, he does have just minimal internal hemorrhoid tissue. After this, the gas was suctioned out and the colonoscope removed. Delgado tolerated his procedure quite well. RECOMMENDATIONS: I will return trials to his room and start him on soft diet. He will probably go home later today or tomorrow. We will probably hold his aspirin and Plavix 1 additional week. Of course, he is at risk for stroke and he and his are well aware of that. Tamara Anderson MD ALB/MODL /[id number] cc: MD Ketan Rodriguez MD Electronically Signed By: TAMARA ANDERSON MD 10/04/20 1244 PATIENT NAME: DELGADO PELLETIER JR OPERATIVE REPORT DATE OF : 43 REPORT #: [id number] PHYSICIAN: TAMARA ANDERSON MD PCP: JOSE GUNDERSON MD REPORT IS CONFIDENTIAL AND NOT TO BE RELEASED WITHOUT AUTHORIZATION [facility] [address] [place], [place] [address] Signed Tamara Anderson MD Copies: JOSE GUNDERSON MD, JEFFREY M MD BOWER, ANDREW L MD ~ Electronically Signed By: TAMARA ANDERSON MD 10/04/20 1244 PATIENT NAME: DELGADO PELLETIER JR OPERATIVE REPORT DATE OF : 43 REPORT #: [id number] PHYSICIAN: TAMARA ANDERSON MD PCP: JOSE GUNDERSON MD REPORT IS CONFIDENTIAL AND NOT TO BE RELEASED WITHOUT AUTHORIZATION
--- NOTE | 2020-10-04 14:55 | NUR ---
PT HAD SCOPE THIS AM. SEEMS HE IS FEELING BETTER. SHARED THEY WILL BE MOVING OUT OF THE AREA THIS MONTH. GAVE ENCOURAGEMENT AND HAD PRAYER.
--- NOTE | 2020-10-04 14:58 | NUR ---
IN TO CHECK ON PATIENT. PATIENT IS RESTING IN BED, IS AT BEDSIDE. PATIENT HAS NO COMPLAINTS AT THIS TIME.
--- NOTE | 2020-10-04 15:30 | NUR ---
DR. ANDERSON CALLED TO VERIFY PATIENT IS OKAY TO DISCHARGE. FOLLOW UP APPOINTMENT MADE FOR PATIENT WITH DR. ANDERSON TO BE SEEN IN 7-10 DAYS. PATIENT WILL CONTINUE TO HOLD TAKING HIS PLAVIX AND ASPIRIN FOR AN ADDITIONAL WEEK. PT WHEELED TO FRONT WITH HIS FOR D/C.
== END 2020-10-04 16:05 | disposition home or self-care (01) | DRG 920 ==
LOC: ED 05:30 → CCU 06:55
PROVIDERS: ADMIT Colon & Rectal Surgery; ATTEND Colon & Rectal Surgery
PROC: 0DBH8ZX Excision of Cecum, Via Natural or Artificial Opening Endoscopic, Diagnostic (ICD-10-PCS; 2020-10-04)
PROC: 0DBF8ZX Excision of Right Large Intestine, Via Natural or Artificial Opening Endoscopic, Diagnostic (ICD-10-PCS; 2020-10-04)
PROC: 0W3P8ZZ Control Bleeding in Gastrointestinal Tract, Via Natural or Artificial Opening Endoscopic (ICD-10-PCS; principal; 2020-10-04 11:30)
DX: K91.840 Postprocedural hemorrhage of a digestive system organ or structure following a digestive system procedure (principal); D62 Acute posthemorrhagic anemia; Z20.822 Contact with and (suspected) exposure to COVID-19; I25.10 Atherosclerotic heart disease of native coronary artery without angina pectoris; I10 Essential (primary) hypertension; K21.9 Gastro-esophageal reflux disease without esophagitis; E11.9 Type 2 diabetes mellitus without complications; E66.9 Obesity, unspecified; K63.5 Polyp of colon; F17.210 Nicotine dependence, cigarettes, uncomplicated; Z95.5 Presence of coronary angioplasty implant and graft; Z86.73 Personal history of transient ischemic attack (TIA), and cerebral infarction without residual deficits; Z98.84 Bariatric surgery status; Z88.8 Allergy status to other drugs, medicaments and biological substances; Z79.899 Other long term (current) drug therapy; Z79.02 Long term (current) use of antithrombotics/antiplatelets; Z79.82 Long term (current) use of aspirin; Z79.4 Long term (current) use of insulin; Z68.39 Body mass index [BMI] 39.0-39.9, adult
CPT/HCPCS: 36415; 36430; 80048; 80053; 83735; 84100; 85025; 85610; 85730; 86850; 86900; 86901; 86920; 93005; 93010; 99285-25; C9113; C9803; J1815; J2001; J2704; J7121; U0003

== ENCOUNTER 2024-08-01 14:25 | Emergency (ER) | payer MEDICARE, OTHER ==
[~2024-08-01] VITALS: Ht 162.6 cm; Wt 93.4 kg
[2024-08-01 15:09] LABS: BASOPHILS 0.5 % (0-2); EOSINOPHILS 0.9 % (0-6); HEMATOCRIT 45.6 % (35.0-50.0); LYMPHOCYTES 7.6 % (24-44); MCH 31.1 (27-36); MCHC 32.8 g/dl (30-36); MCV 94.9 fl (81-99); MONOCYTES 6.3 % (0-12); NEUTROPHILS 84.7 % (39-80); PLATELET COUNT 223 K/uL (140-440); RBC 4.81 M/ul (4.3-5.7); RDW 13.9 (10.5-15.0)
[2024-08-01 15:25] LABS: ALBUMIN 3.6 g/dL (3.4-5.0); ALBUMIN/GLOBULIN RATIO 1.2 (1.1-2.4); ANION GAP 14.7 (7-21); BILIRUBIN, TOTAL 0.7 ng/dL (0.2-1.0); BUN/CREATININE RATIO 14.17 (6.0-28.6); CALCIUM 9.9 mg/dL (8.5-10.1); CREATININE, SERUM 1.27 mg/dL (0.70-1.30); POTASSIUM 4.7 mmol/L (3.5-5.1); PROTEIN, TOTAL 6.6 g/dL (6.4-8.2)
[2024-08-01] MEDS ORDERED: SODIUM CHLORIDE 0.9% 1,000 ML IV ONE (15:45)
[2024-08-01 16:17] LABS: CORONAVIRUS COVID-19 AG NEGATIVE (NEGATIVE); INFLUENZA A AG POSITIVE (NEGATIVE); INFLUENZA B AG NEGATIVE (NEGATIVE)
[2024-08-01] MEDS ORDERED: OSELTAMIVIR PHOSPHATE 75 MG CAP PO ONE (16:45)
[2024-08-01 16:49] LABS: BILIRUBIN, URINE NEGATIVE (negative); BLOOD/HGB, URINE LARGE (Negative); KETONE, URINE NEGATIVE (Negative); LEUK ESTERASE, URINE NEGATIVE (negative); NITRITE, URINE NEGATIVE (negative)
[2024-08-01 16:55] LABS: EPITHELIAL CELLS, URINE SQUAMOUS 1+ /lpf (0-1+)
[2024-08-01 16:57] LABS: BACTERIA, URINE RARE /hpf (negative); CASTS, URINE GRANULAR 1+ \\lpf; CRYSTALS, URINE CALCIUM OXALATE 3+ (0-1+)
[2024-08-01 16:58] LABS: COLLECTION TYPE, URINE CLEAN CATCH; REFLEX CULTURE, URINE No (No)
[2024-08-01] MEDS ORDERED: levoFLOXacin 750 MG PIGGYBACK IV ONE (18:30)
[2024-08-01 20:30] VITALS: BP 103/60
== END 2024-08-01 20:30 | disposition home or self-care (01) ==
LOC: ED 14:25
PROVIDERS: Emergency Medicine
DX: J10.00 Influenza due to other identified influenza virus with unspecified type of pneumonia (principal); I10 Essential (primary) hypertension; I25.2 Old myocardial infarction; E13.9 Other specified diabetes mellitus without complications; Z87.891 Personal history of nicotine dependence; Z88.8 Allergy status to other drugs, medicaments and biological substances; Z79.4 Long term (current) use of insulin; Z79.82 Long term (current) use of aspirin; Z79.899 Other long term (current) drug therapy
CPT/HCPCS: 36415; 71045; 80053; 81001; 85025; 96361; 96374; 99285-25; J1956; J7030

== ENCOUNTER 2024-08-26 13:12 | Emergency (ER) | payer MEDICARE, OTHER ==
[~2024-08-26] VITALS: Ht 162.6 cm; Wt 90.0 kg
[~2024-08-26 13:12] MED LIST changes: +ADULT ASPIRIN R81 MG PO; +BUPRENORPHINE HC2 MG SL; +EZETIMIBE10 MG PO; +FAMOTIDINE40 MG PO; +FENOFIBRATE145 MG PO; +LEVOFLOXACIN750 MG PO; +LOSARTAN POTASS25 MG PO; +METAMUCIL FIBER2 GM PO; +METOPROLOL SUCC50 MG PO; +OZEMPIC2 MG/0.75 SUB-Q; +PEPTO-BISM262 MG/15 PO; +TAMIFLU75 MG PO; +TYLENOL325 MG PO; +VITAMIN B-121000 MCG PO; +VITAMIN C500 M1 PO; +VITAMIN D325 MC2 PO
[2024-08-26] MEDS ORDERED: MAGNESIUM CITRATE 300 ML BTL PO ONE (16:30)
[2024-08-26] MEDS ORDERED: Methylnaltrexone Bromide 12 MG/0.6 ML VIAL SUB-Q ONE (16:30)
[2024-08-26] MEDS ORDERED: SOD PHOSPHATE/SOD BIPHOSPHATE 132 ML BTL PR ONE (16:45)
[2024-08-26 19:39] VITALS: BP 150/78
== END 2024-08-26 19:43 | disposition home or self-care (01) ==
LOC: ED 13:12
DX: K59.00 Constipation, unspecified (principal); I10 Essential (primary) hypertension; I25.2 Old myocardial infarction; E11.9 Type 2 diabetes mellitus without complications; Z87.891 Personal history of nicotine dependence; Z88.2 Allergy status to sulfonamides; Z88.1 Allergy status to other antibiotic agents; Z88.8 Allergy status to other drugs, medicaments and biological substances; Z79.890 Hormone replacement therapy; Z79.4 Long term (current) use of insulin; Z79.899 Other long term (current) drug therapy
CPT/HCPCS: 99283; J2212

== ENCOUNTER 2024-08-30 21:58 | Inpatient (IN) | payer MEDICARE, OTHER ==
[~2024-08-30] VITALS: Ht 162.6 cm; Wt 86.8 kg
[2024-08-30] MEDS ORDERED: CEFTRIAXONE SODIUM 2 GM VIAL ONE (22:11)
[2024-08-30] MEDS ORDERED: SODIUM CHLORIDE 0.9% 1,000 ML IV ONE (22:15)
[2024-08-30] MEDS ORDERED: CEFTRIAXONE SODIUM 2 GM in SODIUM CHLORIDE 0.9% 100 ML IV ONE (22:15)
[2024-08-30] MEDS ORDERED: LACTATED RINGER'S 1,000 ML IV ONE (22:15)
[2024-08-30] MEDS ORDERED: LORazepam 2 MG/ML VIAL IV ONE (22:30)
[2024-08-30 22:39] LABS: HEMATOCRIT 14.9 % (35.0-50.0); MCH 32.3 (27-36); MCHC 32.3 g/dl (30-36); PLATELET COUNT 81 K/uL (140-440); RBC 1.49 M/ul (4.3-5.7); RDW 14.1 (10.5-15.0)
[2024-08-30 22:41] LABS: HEMOGLOBIN 4.8 g/dL (12.0-18.0)
[2024-08-30 22:45] LABS: ALBUMIN 3.3 g/dL (3.4-5.0); ALBUMIN/GLOBULIN RATIO 1.03 (1.1-2.4); ANION GAP 13.7 (7-21); BILIRUBIN, TOTAL 0.6 mg/dL (0.2-1.0); BUN/CREATININE RATIO 10.52 (6.0-28.6); CALCIUM 9.1 mg/dL (8.5-10.1); CREATININE, SERUM 1.14 mg/dL (0.70-1.30); POTASSIUM 4.7 mmol/L (3.5-5.1); PROTEIN, TOTAL 6.5 g/dL (6.4-8.2)
[2024-08-30 22:46] LABS: BILIRUBIN, URINE NEGATIVE (negative); BLOOD/HGB, URINE NEGATIVE (Negative); KETONE, URINE NEGATIVE (Negative); LEUK ESTERASE, URINE NEGATIVE (negative); NITRITE, URINE NEGATIVE (negative); PH, URINE 6.5 (5-7)
[2024-08-30 22:56] LABS: INFLUENZA B NAA NEGATIVE (NEGATIVE); RESPIRATORY SYNCYTIAL VIR NAA NEGATIVE (NEGATIVE)
[2024-08-30 22:59] LABS: LACTIC ACID, BLOOD 2.2 mmol/L (0.4-2.0)
[2024-08-30 23:22] LABS: PROTIME 13.1 Sec (11.2-14.2)
[2024-08-30 23:24] LABS: PARTIAL THROMBOPLASTIN TIME 22.3 Sec (22.9-41.3)
[2024-08-30 23:31] LABS: LYMPHOCYTES, MANUAL DIFF 6; NEUTROPHILS, MANUAL DIFF 94
[2024-08-30 23:47] LABS: ABO A; ANTIBODY SCREEN NEGATIVE; IS CROSSMATCH COMPATIBLE; RH POSITIVE
[2024-08-31] VITALS (16 sets, daily range): BP systolic 94–146; BP diastolic 47–97
[2024-08-31 00:13] LABS: BASOPHILS 0.3 % (0-2); EOSINOPHILS 2.2 % (0-6); HEMOGLOBIN 15.5 g/dL (12.0-18.0); LYMPHOCYTES 10.4 % (24-44); MCH 31.4 (27-36); MCHC 33.1 g/dl (30-36); MONOCYTES 6.1 % (0-12); PLATELET COUNT 264 K/uL (140-440); RBC 4.94 M/ul (4.3-5.7); RDW 13.8 (10.5-15.0)
[2024-08-31] MEDS ORDERED: ACETAMINOPHEN 650 MG SUPP PR ONE (00:30)
[2024-08-31 00:39] LABS: PH, VENOUS 7.371 (7.31-7.41)
[2024-08-31] MEDS ORDERED: AZITHROMYCIN 500 MG in DEXTROSE 5% 250 ML IV ONE (01:15)
[2024-08-31] MEDS ORDERED: CEFTRIAXONE SODIUM 2 GM in SODIUM CHLORIDE 0.9% 100 ML IV ONE (01:15)
[2024-08-31] MEDS ORDERED: SODIUM CHLORIDE 0.9% 1,000 ML IV SCH ×3 (01:15→10:00)
[2024-08-31] MEDS ORDERED: ondansetron HCL 4 MG/2 ML VIAL IV PRN ×2 (02:30→10:00)
[2024-08-31] MEDS ORDERED: ACETAMINOPHEN 650 MG SUPP PR PRN (02:30)
[2024-08-31] MEDS ORDERED: MORPHINE SULFATE 4 MG/ML VIAL IV PRN (02:30)
--- NOTE | 2024-08-31 02:50 | NUR ---
PATIENT ARRIVED TO ROOM 128 VIA STRETCHER FROM ED. SAMI AT BEDSIDE. HANDOFF REPORT RECEIVED FROM CHING KRAUS. PATIENT MOVED TO CCU BED VIA SLIDE SHEET. PATIENT NOTED TO HAVE REDDENED AREA ON COCCYX; BLANCHABLE. PATIENT ARRIVES ON 2L NC, TOLERATING WELL. PATIENT LETHARGIC AND CONFUSED. PATIENT ABLE TO ANSWER SOME QUESTIONS WITH ONE WORD ANSWERS, THEN FALLS BACK TO SLEEP. PATIENT PLACED IN BRIEF, AND NEW GOWN. THIS RN IN ROOM TO COMPLETE ADMISSION.
[2024-08-31] MEDS ORDERED: DEXTROSE 5% 1,000 ML IV PRN ×2 (03:15→10:00)
[2024-08-31] MEDS ORDERED: IBLOOD GLUCOSE TEST STRIP 1 EA TEST XX PRN ×2 (03:15→10:00)
[2024-08-31] MEDS ORDERED: DEXTROSE 50% 50 ML SYR IV PRN ×4 (03:15→10:00)
[2024-08-31] MEDS ORDERED: GLUCAGON,HUMAN RECOMBINANT 1 MG/ML VIAL SUB-Q PRN ×2 (03:15→10:00)
--- NOTE | 2024-08-31 03:40 | NUR ---
PATIENT RESTING WITH EYES CLOSED, RR 18. PATIENT REMAINS AT BEDSIDE, PROVIDED WITH WARM BLANKETS. PATIENT HAS IVF INFUSING PER EMAR, IV SITE WNL. PATIENT REMAINS ON 2L NC, SPO2 94%. NO DISTRESS NOTED. CALL LIGHT IN REACH. PATIENT CURTAIN REMAINS OPEN FOR PATIENT SAFETY.
--- NOTE | 2024-08-31 05:05 | NUR ---
patient remains confused, only alert to self. patient opens eyes and quickly drifts back to sleep. patient remains on 2L NC, tolerating well. patient denies need to use restroom and denies being in pain at this time. patient has occasional nonproductive cough. IV fluids infusing per EMAR, site WNL. patient Davion remains at bedside. no needs at this time. call light in reach. bed alarm on for patient safety.
[2024-08-31 05:28] LABS: BASOPHILS 0.4 % (0-2); EOSINOPHILS 0.1 % (0-6); HEMATOCRIT 41.7 % (35.0-50.0); HEMOGLOBIN 14.3 g/dL (12.0-18.0); LYMPHOCYTES 8.8 % (24-44); MCH 31.6 (27-36); MCHC 34.2 g/dl (30-36); MCV 92.2 fl (81-99); MONOCYTES 6.8 % (0-12); NEUTROPHILS 83.9 % (39-80); PLATELET COUNT 236 K/uL (140-440); RBC 4.52 M/ul (4.3-5.7); RDW 13.6 (10.5-15.0)
--- NOTE | 2024-08-31 05:45 | NUR ---
patient noted to pull off oxygen and cardiac leads. this RN in room, patient reoriented. leads and oxygen placed back on patient. no further needs at this time. curtain and door open for patient safety, bed alarm on.
[2024-08-31 05:53] LABS: ALBUMIN 2.9 g/dL (3.4-5.0); ALBUMIN/GLOBULIN RATIO 1.07 (1.1-2.4); ANION GAP 12.9 (7-21); BILIRUBIN, TOTAL 0.5 mg/dL (0.2-1.0); BUN/CREATININE RATIO 11.4 (6.0-28.6); CALCIUM 8.9 mg/dL (8.5-10.1); CREATININE, SERUM 1.14 mg/dL (0.70-1.30); MAGNESIUM 1.9 mg/dL (1.8-2.4); POTASSIUM 3.9 mmol/L (3.5-5.1); PROTEIN, TOTAL 5.6 g/dL (6.4-8.2)
[2024-08-31 05:55] LABS: LACTIC ACID, BLOOD 1.9 mmol/L (0.4-2.0)
--- NOTE | 2024-08-31 06:15 | NUR ---
NEW IV SITE STARTED ON PATIENT LEFT FOREARM. PATIENT TOLERATED WELL. PATIENT WAKES UP FOR BRIEF SECOND AND THEN CLOSES EYES. PATIENT DENIES PAIN AT THIS TIME. PATIENT REMAINS ON 2L NC, TOLERATING WELL. PATIENT REMAINS ALTERED AND CONFUSED, ONLY ORIENTED TO SELF. PATIENT HAS BED ALARM ON, CURTAIN AND DOOR REMAIN OPEN FOR PATIENT SAFETY.
--- NOTE | 2024-08-31 06:40 | NUR ---
DOCTOR CALLED AND UPDATED ON PATIENT STATUS. NO NEW ORDERS AT THIS TIME.
[2024-08-31] MEDS ORDERED: Insulin Regular, Human 100 UNIT/ML ML SUB-Q SCH (07:00)
[2024-08-31] MEDS ORDERED: CEFTRIAXONE SODIUM 2 GM in SODIUM CHLORIDE 0.9% 100 ML IV SCH ×2 (09:00→21:00)
[2024-08-31] MEDS ORDERED: AZITHROMYCIN 500 MG in DEXTROSE 5% 250 ML IV SCH ×2 (09:00→21:00)
[2024-08-31] MEDS ORDERED: ACETAMINOPHEN 325 MG TAB PO PRN (10:00)
--- NOTE | 2024-08-31 10:04 | NUR ---
DR. ANGULO IN TO SEE PATIENT AND PLAN OF CARE DISCUSSED. PT'S DAUGHTER AND HIS IN ROOM AND ALL QUESTIONS ANSWERED BEST POSSIBLE. PT RESTING. PT DID EAT ABOUT 25% OF HIS BREAKFAST AND DRANK SOME WATER. PT ON ROOM AIR NOW WITH SP02 OF 91%. PENDING NEW ORDERS FROM DR. ANGULO.
--- NOTE | 2024-08-31 10:52 | NUR ---
VISITED DURING SPIRITUAL CARE ROUNDS. PT APPEARED TO BE SLEEPING. DID NOT DISTURB. PROVIDED PRAYER.
[2024-08-31] MEDS ORDERED: INSULIN LISPRO 100 UNIT/ML ML SUB-Q SCH (12:00)
[2024-08-31] MEDS ORDERED: PHARMACY RENAL DOSE ADJUSTMENT 1 DOSE MISC PO SCH (12:00)
[2024-08-31] MEDS ORDERED: IBLOOD GLUCOSE TEST STRIP 1 EA TEST VI SCH (12:00)
--- NOTE | 2024-08-31 13:40 | NUR ---
PATIENT AWOKEN TO SEE IF HE NEEDS TO VOID. BLADDER SCANNED FOR 468 ML. PT REPOSITIONED IN BED AND NEW DRAW SHEET PLACED UNDER HIM, WELL NEW ATTENDS. PT THEN VOIDED 450 ML CONCENTRATED URINE AND STATES, "WELL THAT FEELS BETTER." PATIENT DID ALSO ENDORSE PAIN WHEN VOIDING. PT'S AND DAUGHTER REMAIN IN ROOM. WILL CONTINUE TO MONITOR.
--- NOTE | 2024-08-31 13:50 | NUR ---
Spoke with pts , Lucioa, daughter, Reyna, and pt. Pt and live in a 1 story home with no steps. Per , pt walks to the bathroom, but spends the majority of his time in a recliner. 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 Pt has a POLST from 2018 and we reviewed. Pt is DNR/DNI with limited intervention. He does not ever want a feeding tube. Pt is hard of hearing and does not have his hearing aids. has significant hearing loss and reads lips. Daughter assist with conversation. They deny any needs, no financial issues, or safety concerns. Pt will go home with family on dc. Daughter is assisting mom and dad with POAs and they have already spoke with a ricardoy. Copy of POLST sent to medical records.
[2024-08-31] MEDS ORDERED: NICOTINE 21 MG/24 HR 1 EA TDSY TD SCH (13:57)
[2024-08-31] MEDS ORDERED: ROSUVASTATIN CAL5 MG PO (14:45)
--- NOTE | 2024-08-31 16:04 | NUR ---
PT TO ROOM 107 VIA CHAIR WITH LEGS ELEVATED, AND DAUGHTER WTIH PT. ROOM ORIENTATION COMPLETE, CALL LIGHT WITHIN REACH.
--- NOTE | 2024-08-31 16:46 | NUR ---
DR ANGULO NOTIFIED THAT PT IS HAVING CARDIAC PAUSES. TELE ON.
[2024-08-31] MEDS ORDERED: NITROSTAT0.4 MG SL (17:43)
[2024-08-31] MEDS ORDERED: NOVOLOG MI100 UNIT/2 SUB-Q (17:44)
--- NOTE | 2024-08-31 17:44 | NUR ---
MED REC COMPLETE
--- NOTE | 2024-08-31 17:47 | EKG ---
[facility] [address] [place] [address] Signed Wide QRS rhythm Right bundle branch block Abnormal ECG When compared with ECG of 03-OCT-2020 19:08, Wide QRS rhythm has replaced Atrial fibrillation Vent. rate has decreased BY 41 BPM Confirmed by Eric Angulo MD () on 08/31/2024 5:46:45 PM Electronically Signed By: ERIC ANGULO MD 08/31/24 1747 PATIENT NAME: PRABHUDELGADO JR Electrocardiogram DATE OF : 43 PHYSICIAN: ERIC NAGULO MD REPORT #: [id number] REPORT IS CONFIDENTIAL AND NOT TO BE RELEASED WITHOUT AUTHORIZATION
--- NOTE | 2024-08-31 17:53 | NUR ---
PT SITTING UP IN CHAIR WITH LEGS ELEVATED WATCHING TV WITH FAMILY IN ROOM. CALL LIGHT WITHIN REACH, NO REQUESTS AT THIS TIME.
[2024-08-31] MEDS ORDERED: TAMSULOSIN HCL 0.4 MG CAP PO SCH (18:00)
--- NOTE | 2024-08-31 18:39 | NUR ---
PT SITTING IN RECLINER WITH LEGS ELEVATED AND FAMILY AT BEDSIDE. CALL LIGHT WITHIN REACH.
--- NOTE | 2024-08-31 19:05 | NUR ---
REPORT RECEIVED FROM INDIRA LOPEZ UPDATED. pt RESTING IN THE BED WITH EYES CLOSED. RR EVEN AND UNLABORED. CALL LIGHT WITHIN REACH.
[2024-08-31] MEDS ORDERED: AZITHROMYCIN 500 MG VIAL ONE (20:03)
[2024-08-31] MEDS ORDERED: CEFTRIAXONE SODIUM 2 GM VIAL ONE (20:03)
--- NOTE | 2024-08-31 20:30 | NUR ---
ASSESSMENT AND VITAL SIGNS DONE. pt HAS FINE CRACKLES IN THE BASES. BG GLUCOSE CHECKED WITH A RESULTS OF 158. SS INSULIN AMINISTERED. IV ABX UNFUSING PER ORDER. SCHEDULED MEDS ADMINISTERED. pt DENIES ANY OTHER NEEDS AT THIS TIME. CALL LIGHT WITHIN REACH. IV'S ASSESSED, WNL.
[2024-08-31] MEDS ORDERED: SENNOSIDES/DOCUSATE 1 EA TAB PO SCH (21:00)
[2024-08-31] MEDS ORDERED: MELATONIN 3 MG TAB PO PRN (21:00)
[2024-08-31] MEDS ORDERED: POLYETHYLENE GLYCOL 3350 1 PACKET PO SCH (21:00)
[2024-08-31] MEDS ORDERED: FINASTERIDE 5 MG TAB PO SCH (21:00)
--- NOTE | 2024-08-31 23:05 | NUR ---
pt RESTING IN THE BED WITH EYES CLOSED. RR EVEN AND UNLABORED. CALL LIGHT WITHIN REACH.
[2024-09-01] VITALS (11 sets, daily range): BP systolic 130–177; BP diastolic 50–98
--- NOTE | 2024-09-01 01:30 | NUR ---
BED ALARM ALARMING pt ROLLED OVER IN THE BED. THIS RN HELP pt GET COMFORTABLE THEN pt STATED HE HAD TO GO PEE. LYNSEY SUAREZ CAME INTO THE RM. THE SENIOR DIRECTOR OF STRATEGY HELPED THE pt TO THE BR WITH SBA WITH THE FWW. pt BACK TO BED. ASSESSMENT DONE. pt DENIES ANY OTHER NEEDS AT THIS TIME. CALL LIGHT WITHIN REACH. VS DONE.
--- NOTE | 2024-09-01 03:30 | NUR ---
pt RESTING IN THE BED WITH EYE CLOSED. RR EVEN AND UNLABORED. CALL LIGHT WITHIN REACH.
--- NOTE | 2024-09-01 05:46 | NUR ---
VITAL SIGNS DONE. pt RESTING IN THE BED. pt DENIES NEEDING THE RESTROOM. pt DENIES ANY OTHER NEEDS AT THIS TIME. CALL LIGHT WITHIN REACH.
[2024-09-01 06:33] LABS: BASOPHILS 0.4 % (0-2); EOSINOPHILS 4.1 % (0-6); HEMATOCRIT 36.6 % (35.0-50.0); HEMOGLOBIN 12.3 g/dL (12.0-18.0); LYMPHOCYTES 20.2 % (24-44); MCH 31.4 (27-36); MCHC 33.7 g/dl (30-36); MCV 93.3 fl (81-99); MONOCYTES 5.9 % (0-12); NEUTROPHILS 69.4 % (39-80); PLATELET COUNT 196 K/uL (140-440); RBC 3.92 M/ul (4.3-5.7); RDW 13.7 (10.5-15.0)
[2024-09-01 06:50] LABS: ALBUMIN 2.4 g/dL (3.4-5.0); ALBUMIN/GLOBULIN RATIO 0.89 (1.1-2.4); ANION GAP 10.8 (7-21); BILIRUBIN, TOTAL 0.3 mg/dL (0.2-1.0); BUN/CREATININE RATIO 10.84 (6.0-28.6); CALCIUM 8.5 mg/dL (8.5-10.1); CREATININE, SERUM 0.83 mg/dL (0.70-1.30); PHOSPHORUS, INORGANIC 2.3 mg/dL (2.5-4.9); POTASSIUM 3.8 mmol/L (3.5-5.1); PROTEIN, TOTAL 5.1 g/dL (6.4-8.2)
--- NOTE | 2024-09-01 07:39 | NUR ---
report received from leslie obrien.
--- NOTE | 2024-09-01 08:05 | NUR ---
ASSESSMENT COMPLETE. PT ASSISTED TO CHAIR FOR BREAKFAST WITH FWW AND 1PA, TOLERATED WELL. PT SITTING UP IN CHAIR EATING BREAKFAST NOW. NO REQUESTS, CALL LIGHT WITHIN REACH.
[2024-09-01] MEDS ORDERED: SOD PHOS MONO/SOD PHOS DIBAS 1 EACH PACKET PO ONE (08:15)
[2024-09-01] MEDS ORDERED: ENOXAPARIN SODIUM 40 MG/0.4 ML SYR SUB-Q SCH (09:00)
[2024-09-01] MEDS ORDERED: buprenorphine HCL 2 MG TAB.SUBL SL SCH (09:00)
[2024-09-01] MEDS ORDERED: CLOPIDOGREL BISULFATE 75 MG TAB PO SCH (09:00)
[2024-09-01] MEDS ORDERED: METOPROLOL SUCCINATE 50 MG TABCR PO SCH (09:00)
[2024-09-01] MEDS ORDERED: ASPIRIN 81 MG TABEC PO SCH (09:00)
--- NOTE | 2024-09-01 09:25 | NUR ---
PATIENT IN BED. NO KNOWN CM NEEDS AT THIS TIME. NURSE VOICES CONCERN PATIENT MAY NEED WALKER AT HOME. PATIENT STATES HE HAS A WALKER. PLAN TO DC HOME WITH WHEN MEDICALLY CLEARED.
--- NOTE | 2024-09-01 10:04 | NUR ---
PT NOT AVAILABLE FOR VISIT. PROVIDED PRAYER.
--- NOTE | 2024-09-01 10:30 | NUR ---
PT ASSISTED BACK TO RECLINER FROM RESTROOM. PT HAD A BM AND VOIDED. AMBULATED BACK TO CHAIR WITH FWW AND 1 PA, TOLERATED WELL. FAMILY IN ROOM. CHAIR ALARM ON. CALL LIGHT WITHIN REACH, NO REQUESTS AT THIS TIME.
--- NOTE | 2024-09-01 12:09 | NUR ---
PT SITTING UP IN CHAIR EATING LUNCH. IN ROOM WITH PT. NO REQUESTS AT THIS TIME. CALL LIGHT WITHIN REACH. CHAIR ALARM ON.
--- NOTE | 2024-09-01 13:47 | NUR ---
PT SITTING IN BED WATCHING TV WITH IN ROOM. LEGS RECLINED. CALL LIGHT WITHIN REACH AND CHAIR ALARM ON. NO REQUESTS
[2024-09-01] MEDS ORDERED: BENZONATATE 100 MG CAP PO PRN (17:00)
[2024-09-01] MEDS ORDERED: guaiFENesin 600 MG TABCR PO PRN (17:00)
--- NOTE | 2024-09-01 17:05 | NUR ---
PT SITTING UP IN RECLINER EATING DINNER, IN ROOM. CALL LIGHT WITHIN REACH AND CHAIR ALARM ON. NO REQUESTS AT THIS TIME.
--- NOTE | 2024-09-01 18:16 | NUR ---
PATIENT SITTING UP IN CHAIR VISITING WITH FAMILY. PATIENT DENIES ANY FURTHER NEEDS AT THIS TIME. CALL LIGHT AND PERSONAL BELONGINGS WITHIN REACH.
[2024-09-01] MEDS ORDERED: POTASSIUM CHLORIDE 10 MEQ TABCR PO ONE (18:45)
--- NOTE | 2024-09-01 19:05 | NUR ---
REPORT RECEIVED FROM INDIRA FLOWER. pt SITTING IN THE CHAIR. BOARD UPDATED. pt DENIES ANY OTHER NEEDS AT THIS TIME. CALL LIGHT WITHIN REACH.
[2024-09-01] MEDS ORDERED: NICOTINE POLACRILEX 2 MG GUM MM PRN (20:00)
[2024-09-01] MEDS ORDERED: NICOTINE POLACRILEX 4 MG LOZENGE BUCCAL PRN (20:00)
--- NOTE | 2024-09-01 20:31 | NUR ---
COMMERCIAL CREDIT PORTFOLIO MANAGER OBTAINED VITALS. NO NEW I&O AT THIS TIME. PT STATES NO NEEDS AND CALL LIGHT WITHIN REACH. BED ALARM ON.
[2024-09-01] MEDS ORDERED: AZITHROMYCIN 500 MG VIAL ONE (20:51)
[2024-09-01] MEDS ORDERED: CEFTRIAXONE SODIUM 2 GM VIAL ONE (20:51)
--- NOTE | 2024-09-01 21:15 | NUR ---
ASSESSMENT AND VITAL SIGNS DONE. pt C/O 12/30 PAIN. PRN PAIN MEDS ADMINISTERED. SCHEDULED MEDS ADMINISTERED. PRN MED ADMINISTERED. pt RESTING IN THE BED. LUNG SOUND ARE CLEAR. pt DENIES ANY OTHER NEEDS AT THIS TIME. CALL LIGHT WITHIN REACH.
--- NOTE | 2024-09-01 22:38 | EKG ---
[facility] [address] [facility] [place] [address] Signed Sinus rhythm with 1st degree AV block Right bundle branch block Abnormal ECG When compared with ECG of 30-AUG-2024 21:59, Sinus rhythm has replaced Wide QRS rhythm Confirmed by Eric Angulo MD () on 09/01/2024 10:38:14 PM Electronically Signed By: ERIC ANGULO MD 09/01/24 2238 PATIENT NAME: DELGADO PELLETIER JR Electrocardiogram DATE OF : 43 PHYSICIAN: ERIC ANGULO MD REPORT #: [id number] REPORT IS CONFIDENTIAL AND NOT TO BE RELEASED WITHOUT AUTHORIZATION
--- NOTE | 2024-09-01 22:46 | NUR ---
MD TO FLOOR, HR BRADYCARDIC ON TELE 9. pt SLEEPING, AWAKENS TO VOICE. VSS. NO DISTRESS NOTED. ASSISTED pt TO REPOSITION HOB LOWER, ADJUST BLANKETS. BED ALARM ON. CALL LIGHT IN REACH.
--- NOTE | 2024-09-01 23:45 | NUR ---
pt CALLED TO USE THE BR. pt WALKED TO THE BR WITH FWW, 1PA. pt BACK TO BED. pt DENIES ANY OTHER NEEDS AT THIS TIME. CALL LIGHT WITHIN REACH.
[2024-09-02 01:34] VITALS: BP 126/62
--- NOTE | 2024-09-02 01:36 | NUR ---
MILL ROLL OPERATOR AND RN OBTAINED VITALS AND I&O. PT GIVEN WARM BLANKET UPON REQUEST. PT STATES NO FURTHER NEEDS AT THIS TIME. CALL LIGHT WITHIN REACH AND BED ALARM ON.
--- NOTE | 2024-09-02 01:44 | NUR ---
IN RM TO DO VITAL SIGNS. ASSESSMENT DONE. pt DENIES ANY NEEDS AT THIS TIME. CALL LIGHT WITHIN REACH.
[2024-09-02 01:45] VITALS: BP 126/62
--- NOTE | 2024-09-02 02:46 | NUR ---
IN ROOM IN RESPONSE TO BED ALARM, PATIENT STANDING AT BEDSIDE USING URINAL. PATIENT SOILED GOWN, BRIEF AND SOCKS. NEW GOWN, BRIEF AND SOCKS PROVIDED. PATIENT BACK IN BED, BED ALARM ON, DENIES OTHER NEEDS. CALL LIGHT IN REACH.
[2024-09-02 05:07] VITALS: BP 150/70
[2024-09-02 05:13] VITALS: BP 150/70
--- NOTE | 2024-09-02 05:35 | NUR ---
IN RM TO TAKE pt TO THE BR AND DO VITAL SIGNS. pt DENIES ANY OTHER NEEDS AT THIS TIME. pt RESTED THROUGH THE NIGHT. CALL LIGHT WITHIN REACH.
[2024-09-02 06:31] LABS: BASOPHILS 0.9 % (0-2); EOSINOPHILS 7.4 % (0-6); HEMATOCRIT 37.3 % (35.0-50.0); HEMOGLOBIN 12.5 g/dL (12.0-18.0); LYMPHOCYTES 32.1 % (24-44); MCH 31.2 (27-36); MCHC 33.5 g/dl (30-36); MCV 93.1 fl (81-99); MONOCYTES 5.9 % (0-12); NEUTROPHILS 53.7 % (39-80); PLATELET COUNT 227 K/uL (140-440); RDW 13.6 (10.5-15.0)
[2024-09-02 06:38] LABS: ALBUMIN 2.5 g/dL (3.4-5.0); ALBUMIN/GLOBULIN RATIO 0.86 (1.1-2.4); ANION GAP 10.5 (7-21); BILIRUBIN, TOTAL 0.2 mg/dL (0.2-1.0); BUN/CREATININE RATIO 8.88 (6.0-28.6); CALCIUM 8.9 mg/dL (8.5-10.1); CREATININE, SERUM 0.9 mg/dL (0.70-1.30); PHOSPHORUS, INORGANIC 2.4 mg/dL (2.5-4.9); POTASSIUM 4.5 mmol/L (3.5-5.1); PROTEIN, TOTAL 5.4 g/dL (6.4-8.2)
--- NOTE | 2024-09-02 07:20 | NUR ---
REPORT RECEIVED FROM CASUALTY INSURANCE CLAIM ADJUSTER RN. PATIENT RESTING IN BED WATCHING TV. DENIES ANY NEEDS AT THIS TIME. CALL LIGHT WITHIN REACH.
[2024-09-02] MEDS ORDERED: SOD PHOS MONO/SOD PHOS DIBAS 250 MG TAB PO ONE (08:15)
--- NOTE | 2024-09-02 08:23 | NUR ---
PT BREAKFAST ARRIVED, ASSISTED WITH SETUP. IV FLUIDS COMPLETE AT THIS TIME, NEW BAG HUNG. PT SITTING UP IN THE BED EATING BREAKFAST AT THIS TIME. PT DENIES FURTHER NEEDS. CALL LIGHT WITHIN REACH.
--- NOTE | 2024-09-02 08:47 | NUR ---
AM MEDICATIONS ADMINSTERED. PATIENT ASSISTED TO BATHROOM WITH 1 PA STAND BY AND FWW. REPORTS PAIN LEVEL IS A 7/10 IN BACK THIS AM. TELE IN PLACE WITH HR SINUS RYTHYM TENA AT TIMES. IV SITES REMAINS PATENT AND WNL. IVF INFUSING WITH NO ISSUES OR COCNERNS. BOWEL TONES ACTIVE X 4 QUADRANTS. PATIENT DENIES ANY CHEST PAIN OR SOB. LUNG SOUNDS CTA IN UPPER LOPBES DIM BILATERAL LOWER LOBES. PATIENT BACK IN BED. DENIES ANY FURTHER NEEDS. CALL LIGHT WITHIN REACH.
--- NOTE | 2024-09-02 08:53 | NUR ---
PATIENT WAS IN BED AT THIS TIME, REFUSED A WASH CLOTH AND TO MOVE TO THE CHAIR FOR BREAKFAST. HEALTH WORKERS GOT FRESH WATER AND TIDYED. CALL LIGHT WITH IN REACH NOTHING ELSE NEEDED AT THIS TIME.
--- NOTE | 2024-09-02 09:40 | NUR ---
PT WORKING WITH PATIENT AT THIS TIME. CALL LIGHT WITHIN REACH.
--- NOTE | 2024-09-02 10:20 | NUR ---
VISITED DURING SPIRITUAL CARE ROUNDS. PT SUPPORTED BY IN ROOM; BOTH IN OVERALL GOOD SPIRITS, NO IMMEDIATE NEEDS. INJECTOR ASSEMBLER PROVIDED SUPPORTIVE PRESENCE, HOSPITALITY, PRAYER, FACILITATED INTERACTION WITH THERAPY ANIMAL. PT AND EXPRESSED GRATITUDE.
[2024-09-02 10:57] VITALS: BP 140/64
--- NOTE | 2024-09-02 11:02 | NUR ---
PATIENT IS IN THE CHAIR RELAXING AT THIS TIME, HISTORICAL GUIDE CHARTED VITALS AND I&O'S. CALL LIGHT WITH IN REACH AND NOTHING ELSE NEEDED AT THIS TIME.
--- NOTE | 2024-09-02 11:29 | NUR ---
PATIENT RESTING IN BED. DENIES ANY NEEDS AT THIS TIME. CALL LIGHT WITHIN REACH.
--- NOTE | 2024-09-02 11:40 | NUR ---
ALERT AND ORIENTED IN RECLINER. CONTINUES TO DENY CM NEEDS AT THIS TIME. PLAN TO DC TO HOME WITH WHEN MEDICALLY STABLE.
[2024-09-02] MEDS ORDERED: CEFDINIR300 MG PO (12:11)
[2024-09-02] MEDS ORDERED: BENZONATATE100 MG PO (12:12)
[2024-09-02] MEDS ORDERED: MUCINEX600 MG PO (12:12)
--- NOTE | 2024-09-02 12:17 | NUR ---
PATIENT ASSISTED BACK FROM BATHROOM WITH FWW. VOID FOR QUANITY SUFFICIENT. SS INSULIN ADMINSTERED. PATIENT RESTING IN RECLINER. AT BEDSIDE. CALL LIGHT WITHIN REACH. CHAIR ALARM IN PLACE.
[2024-09-02 13:27] VITALS: BP 130/56
--- NOTE | 2024-09-02 13:50 | NUR ---
REFERRAL SENT TO [facility].
--- NOTE | 2024-09-02 15:39 | EKG ---
[facility] [address] [facility] [place] [address] Signed Sinus rhythm with 1st degree AV block Right bundle branch block Inferior infarct , age undetermined Abnormal ECG When compared with ECG of 01-SEP-2024 17:49, No significant change was found Confirmed by Eric Angulo MD () on 09/02/2024 3:39:47 PM Electronically Signed By: ERIC ANGULO MD 09/02/24 1539 PATIENT NAME: DELGADO PELLETIER JR Electrocardiogram DATE OF : 43 PHYSICIAN: ERIC ANGULO MD REPORT #: [id number] REPORT IS CONFIDENTIAL AND NOT TO BE RELEASED WITHOUT AUTHORIZATION
== END 2024-09-02 13:20 | disposition home health service (06) | DRG 871 ==
LOC: ED 21:58 → MS 08-31 02:22 → CCU 08-31 02:22 → MS 08-31 16:03
PROVIDERS: Family Medicine; ADMIT Family Medicine; ATTEND Family Medicine
DX: A41.9 Sepsis, unspecified organism (principal); G93.41 Metabolic encephalopathy; J18.9 Pneumonia, unspecified organism; I10 Essential (primary) hypertension; N40.0 Benign prostatic hyperplasia without lower urinary tract symptoms; I44.0 Atrioventricular block, first degree; Z66 Do not resuscitate; D64.9 Anemia, unspecified; Z99.81 Dependence on supplemental oxygen; I45.10 Unspecified right bundle-branch block; Z88.2 Allergy status to sulfonamides; Z88.8 Allergy status to other drugs, medicaments and biological substances; E11.9 Type 2 diabetes mellitus without complications; I25.2 Old myocardial infarction; Z86.73 Personal history of transient ischemic attack (TIA), and cerebral infarction without residual deficits; Z87.891 Personal history of nicotine dependence; Z90.49 Acquired absence of other specified parts of digestive tract; Z98.890 Other specified postprocedural states; Z95.5 Presence of coronary angioplasty implant and graft; Z79.899 Other long term (current) drug therapy; Z79.4 Long term (current) use of insulin; Z79.82 Long term (current) use of aspirin; Z87.442 Personal history of urinary calculi
CPT/HCPCS: 36415; 51701; 51798; 71045; 74177; 80053; 81003; 82803; 83605; 83735; 83880; 84100; 85025; 85060; 85610; 85730; 86850; 86900; 86901; 86922; 87040; 87502; 93005; 93010; 94667; 97116; 97162; 97166; 97530; 97535; 99285-25; A9270; J0456; J0696; J1650; J1815; J2060; J7030; J7060; J7121; Q9967; U0002